=== PATIENT | female | born 1950 | race Caucasian/White ===

== ENCOUNTER → 2017-11-19 | Outpatient (CLI) | payer OTHER ==
[~2017-11-19] MED LIST: ASPIR 8181 MG PO; ATROVENT HFA14 GM INH; CARVEDILOL12.5 MG PO; CELEBREX100 MG/1 C PO; COUMADIN 3 MG TA3 M1 PO; COUMADIN 4 MG TA4 M1 PO; ENOXAPARIN100 MG/11 SUBQ; FLONASE 0.05%50 MCG NASAL; FLOVENT HFA 4444 MCG INH; LIPITOR 20 MG T20 M1 PO; LISINOPRIL10 MG PO; PROAIR HFA8.5 GM INH; SAVELLA100 MG PO; SINGULAIR 10 MG10 M1 PO; SYNTHROID150 MCG PO; TRAMADOL 50 MG50 MG PO; TRAZODONE HCL100 MG PO; ZYRTEC10 M2 PO
== END ==
LOC: MRI 12:22
DX: S46.811A Strain of other muscles, fascia and tendons at shoulder and upper arm level, right arm, initial encounter (principal); M19.011 Primary osteoarthritis, right shoulder; M62.511 Muscle wasting and atrophy, not elsewhere classified, right shoulder; M25.411 Effusion, right shoulder; M75.101 Unspecified rotator cuff tear or rupture of right shoulder, not specified as traumatic; X58.XXXA Exposure to other specified factors, initial encounter; Y93.89 Activity, other specified; Y92.89 Other specified places as the place of occurrence of the external cause; Y99.8 Other external cause status

== ENCOUNTER 2017-12-26 05:55 | Day surgery (SDC) | payer OTHER ==
[~2017-12-26] VITALS: Ht 165.1 cm; Wt 102.1 kg
--- NOTE | ~2017-12-26 | O ---
[facility] [place] [address] OPERATIVE REPORT Name: MINOR BANUELOS Room #: [place] [facility] Savi.#: [id number] Admission: 12/26/17 Attend Phys: Kannan North Discharge: 12/26/17 Date of : 54 Report #: [id number] THIS REPORT FOR: //name// CC: Kannan Dover DATE OF SERVICE: 12/26/2017 PREOPERATIVE DIAGNOSIS: Right shoulder recurrent massive rotator cuff tear. POSTOPERATIVE DIAGNOSES: Right shoulder recurrent massive rotator cuff tear, intraarticular loose bodies, glenohumeral joint chondromalacia, complex labral tear, retained rotator cuff implant and subacromial bursitis. PROCEDURE PERFORMED: Right shoulder arthroscopy, superior capsular reconstruction, rotator cuff repair of the subscapularis and infraspinatus, extensive debridement, loose body removal, removal of prior rotator cuff suture anchor construct. SURGEON: Kannan Thacker MD. PRINTED CIRCUIT BOARD ASSEMBLER: Maryellen Washburn PA-C. ANESTHESIA: General with preoperative interscalene block with Dr. Fischer. FLUIDS: 800 mL crystalloid. ESTIMATED BLOOD LOSS: Less than 5 mL. DESCRIPTION OF PROCEDURE: After proper identification of the patient and operative site in preoperative holding area, the operative site was signed by myself. Prophylactic antibiotics given. The patient elected to receive an interscalene block by Dr. Fischer after reviewing the risks, benefits, alternatives and potential complications. After a satisfactory block, the patient was brought back to the operative suite. After induction of satisfactory general anesthesia, the patient's right shoulder was carefully examined. It was stable throughout an arc of motion comparable to the preoperative assessment. She was carefully positioned in the left lateral decubitus position. Beanbag and axillary roll were utilized to support the torso. Right shoulder was then sterilely prepped and draped in usual manner and placed in 10 pounds of balanced arthroscopic suspension. The arm was abducted approximately 20 degrees. A posterior portal was established, joint was inflated with an arthroscopic pump set at 40 mmHg. An anterior superior portal was then created. Examination of the glenohumeral joint revealed several intra-articular chondral loose bodies, which were removed with motorized shaver. There was a complex labral tearing noted of the superior and anterior superior [address] [address] OPERATIVE REPORT Name: MINOR BANUELOS Room #: [place] [facility] M.R.#: [id number] Admission: 12/26/17 Attend Phys: Kannan North Discharge: 12/26/17 Date of : 54 Report #: [id number] quadrants, which was carefully debrided. Mild degenerative change was noted about the humeral head inferiorly as well as a small spot superiorly. This was partial thickness in nature and appeared to occupy less than 50% of the chondral thickness. There is evidence of a massive rotator cuff tear involving the upper border of the subscapularis, the entire supraspinatus and a portion of the infraspinatus. Intra-articular synovitis was noted, otherwise carefully debrided. The biceps was not visualized on its attachment to the labrum. At this point, an additional anterior inferior portal was created using an 8 mm cannula and a spinal needle for localization. Frayed upper border of the subscapularis was carefully debrided. The lesser tuberosity was debrided with a sharp ring curette and a FiberTape was placed through the upper border of the subscapularis and secured with a 4.75 mm SwiveLock anchor. The repair construct was stable to probing. This nicely reapproximated the upper border of the tear and the partial thickness chondral irregularity and any loose chondral flaps noted on the humeral head were carefully debrided. At this point, the arthroscope was introduced in the subacromial space. The patient's supraspinatus was irreparable. The upper border of the subscap had been repaired, so a complete tendon was noted. The infraspinatus could be pulled to the tuberosity, but there was not sufficient tissue for any more significant closure and therefore, the procedure carried on to the superior capsular reconstruction. The greater tuberosity and superior aspect of the glenoid were carefully prepared. Two anchors initially were inserted on the glenoid medially. These were 3 mm BioComposite SutureTak and then, a third additional anchor was placed laterally which was another 3 mm SutureTak laterally. Two 4.75 mm SwiveLock anchors loaded with FiberTape were positioned and then the measurements medially, laterally, anteriorly and posteriorly overall taken, 5 mm of additional graft length was planned for all dimensions other than the most lateral aspect of the graft was lengthened 10 mm. The LifeNet 3.5 mm decellularized dermis was prepared on the back table. Punches were utilized for placement of the sutures through the graft and in the middle of the graft medially, a FiberLink was applied, which was secured with a third Bio-SutureTak anchor. The sutures were carefully passed out a 12 mm PassPort cannula. The graft or the sutures were then fed through the graft and great care was taken with suture management to ensure that these did not angle. The Bio-SutureTak to the sutures were tied to each other and utilizing a anabela technique and the graft was carefully advanced into the joint and the sutures were then tensioned. The graft was carefully unfolded and positioned along the glenoid. It nicely laid down and then, the remaining 2 sutures were tied with nonsliding knots to secure this medially. This resulted in nice fixation. The FiberLink previously placed was secured with an additional 3.0 Bio-SutureTak for the third anchor of fixation medially. This was placed through portal. Prior to this insertion, previous suture and anchor construct was removed from her previous rotator cuff repair. Prior to the superior capsular reconstruction, this was noted in the 15th image. The posterior aspect of the infraspinatus was tenodesed to the posterior surface to the graft. A [id number] suture was applied in the mid aspect of the graft in more of a horizontal mattress suture [facility] [address] [place] [address] OPERATIVE REPORT Name: MINOR BANUELOS Room #: DEP [facility] M.Viki.#: [id number] Admission: 12/26/17 Attend Phys: Kannna North Discharge: 12/26/17 Date of : 54 Report #: [id number] utilizing the more medially based and posterior SwiveLock anchor of the suture bridge construct. The FiberTape were then cut, crossed and 2 additional SwiveLock anchors were placed more laterally base creating a double row construct completing the suture bridge portion of the procedure and this nicely laid down on the graft. There was no rotator interval tissue to close anteriorly. The graft was well positioned and well secured on both sides as well as the infraspinatus had been repaired as well. Subacromial space was thoroughly irrigated with normal saline. All instruments and cannulas were removed. Portals were closed with simple nylon stitches. The patient will be immobilized in a sling and abduction pillow for 8 weeks postoperatively. Qualified certified physician's assistant was utilized throughout the entire procedure to aid in patient limb positioning, visualization, suture management and closure and sling application. <ELECTRONICALLY SIGNED> By: Kannan Thacker MD 12/31/17 [id number] [id number] Kannan Thacker MD /nt
[2017-12-26 11:49] VITALS: BP 145/74
[2017-12-26 11:53] LABS: PROTIME 10.7 Seconds (9.3-11.4)
[2017-12-26 15:55] VITALS: BP 145/74
== END 2017-12-26 17:30 | disposition home or self-care (01) ==
LOC: OR 05:55 → TBA 05:55 → OR 14:04
PROVIDERS: Orthopaedic Surgery Sports Medicine
DX: M75.101 Unspecified rotator cuff tear or rupture of right shoulder, not specified as traumatic (principal); M94.211 Chondromalacia, right shoulder; M24.011 Loose body in right shoulder; S43.491A Other sprain of right shoulder joint, initial encounter; T84.098A Other mechanical complication of other internal joint prosthesis, initial encounter; M75.51 Bursitis of right shoulder; I10 Essential (primary) hypertension; E78.00 Pure hypercholesterolemia, unspecified; E03.9 Hypothyroidism, unspecified; M79.7 Fibromyalgia; M19.90 Unspecified osteoarthritis, unspecified site; J45.909 Unspecified asthma, uncomplicated; Z87.891 Personal history of nicotine dependence; Z98.890 Other specified postprocedural states; Z96.642 Presence of left artificial hip joint; Z96.651 Presence of right artificial knee joint; Z79.899 Other long term (current) drug therapy; X58.XXXA Exposure to other specified factors, initial encounter; Y93.89 Activity, other specified; Y92.89 Other specified places as the place of occurrence of the external cause; Y99.8 Other external cause status; Y83.8 Other surgical procedures as the cause of abnormal reaction of the patient, or of later complication, without mention of misadventure at the time of the procedure; Z95.2 Presence of prosthetic heart valve; Z88.8 Allergy status to other drugs, medicaments and biological substances; Z79.82 Long term (current) use of aspirin; Z79.01 Long term (current) use of anticoagulants
CPT/HCPCS: 50010; 50101; 50172; 50386; 50417; 50539; 50597; 50950; 51038; 51445; 51847; 53340; 53610; 54170; 55430; 56527; 62110; 62900; 65060; 70005

== ENCOUNTER → 2019-01-20 | Outpatient (CLI) | payer OTHER | LOC: MRI 11:42 | DX: M75.122 Complete rotator cuff tear or rupture of left shoulder, not specified as traumatic (principal); M25.412 Effusion, left shoulder ==

== ENCOUNTER 2019-03-05 05:37 | Day surgery (SDC) | payer OTHER ==
[~2019-03-05] VITALS: Ht 165.1 cm; Wt 102.5 kg
--- NOTE | ~2019-03-05 | O ---
[facility] [place] [address] OPERATIVE REPORT Name: MINOR BANUELOS Room #: [facility] Savi.#: [id number] Admission: 03/05/19 ������������������ Attend Phys: Kannan North Discharge: 03/05/19 ������������������ Date of : 54 Report #: [id number] THIS REPORT FOR: //name// CC: Kannan Dover DATE OF SERVICE: 03/05/2019 PREOPERATIVE DIAGNOSES: Left shoulder pain, rotator cuff tear, biceps tendinopathy, impingement syndrome, labral tear. POSTOPERATIVE DIAGNOSES: Left shoulder pain, large rotator cuff tear, biceps tendon tear and subluxation, complex labral tear, intra-articular synovitis, glenohumeral joint chondromalacia, subacromial bursitis with impingement syndrome. PROCEDURE PERFORMED: Left shoulder arthroscopy, rotator cuff repair, arthroscopic biceps tenodesis, subacromial decompression, extensive debridement. SURGEON: Kannan Thacker MD. TAILING MACHINE OPERATOR: Maryellen Washburn PA-C. ANESTHESIA: General with preoperative ultrasound-guided interscalene block. FLUIDS: 1000 mL crystalloid. ESTIMATED BLOOD LOSS: Approximately 5 mL. DESCRIPTION OF PROCEDURE: After proper identification of the patient and operative site in preoperative holding area, the operative site was signed by myself. Prophylactic antibiotics given. The patient elected to receive an ultrasound-guided block after reviewing the risks, benefits, alternatives and potential complications with Dr. Fischer. After a satisfactory block, the patient was brought back to the operative suite. After induction of satisfactory general anesthesia, the left shoulder was examined. It was stable throughout a full arc of motion comparable to the preoperative assessment. The patient was carefully positioned in the right lateral decubitus position. Feldman bag and extra roll were utilized to support the torso. Left shoulder was sterilely prepped and draped in usual manner and placed in 10 pounds of balanced arthroscopic suspension. Posterior portal was established, joint was insufflated with an arthroscopic pump set at 40 mmHg. Anterior superior portal was created using a spinal needle for localization. Examination of the glenohumeral joint revealed an extensive long head of the biceps tendon tear, subluxation on the upper border of the subscapularis was noted with an upper border tear of the subscap present, complex labral fraying and degeneration was [address] [address] OPERATIVE REPORT Name: MINOR BANUELOS Room #: [place]P [facility] Savi.#: [id number] Admission: 03/05/19 ������������������ Attend Phys: Kannan North Discharge: 03/05/19 ������������������ Date of : 54 Report #: [id number] noted of the anterior, superior and posterior superior quadrants. This was debrided with motorized shaver. Frayed portion of the biceps tendon was debrided. Tendon grasping stitch was applied and was released off the superior labrum. An additional anterior inferior portal was created for repair of the subscapularis. The abundant synovium was carefully debrided. Mild chondral thinning and fibrillation was appreciated on the humeral head as well as the glenoid. No exposed bone was noted. There was also a full thickness retracted tear of the supraspinatus extending into the anterior infraspinatus. At this point, the lesser tuberosity was prepared with sharp ring curette and motorized shaver. Frayed portion of the upper border of the subscapularis was carefully debrided. A FiberTape was passed in a simple manner and secured with a 4.75 mm SwiveLock anchor into the lesser tuberosity. Subscapularis was stable to probing following the repair. Arthroscope was introduced into subacromial space. Thickened subacromial bursa was encountered. This was resected for visualization purposes. Fraying in the undersurface of the coracoacromial arch was noted. The CA ligament was released, but not resected off the anterolateral acromion and prominence to the acromion was removed using a motorized bur. There was a complete tear crescent shaped in nature of the supraspinatus that extended back into the more anterior infraspinatus. Greater tuberosity was prepared with a combination of hand and motorized instrumentation. Tear was easily reducible. Tendon itself was thinned, but still competent, easily reduced to the footprint and through a separate portal off the lateral border of the acromion, a single triple-loaded 4.75 mm anchor with two #2 FiberWires and one FiberTape was inserted. Sutures were passed in a horizontal mattress fashion as well as the FiberTape were passed independently in a horizontal mattress fashion in the more central aspect of the repair. Sutures were then tied. Next, all 3 suture pairs were placed through a separate more laterally-based double row fixation using additional SwiveLock anchor after all slack was removed from the suture constructs and the lateral row was tensioned appropriately. The anchor had good purchase. Sutures were trimmed. At this point, the lateral border of the bicipital groove was opened. Biceps tendon was delivered. Whipstitch was placed. It was secured to the bicipital groove utilizing an Arthrex proximal biceps tenodesis button that was stable to probing following the procedure. The more proximal aspect of the tendon was trimmed. Subacromial space thoroughly irrigated with normal saline. Portals closed with simple nylon stitch. Sterile dressing was applied. The patient was awakened and transferred to the recovery room in stable condition. Qualified international first officer utilized throughout the entire procedure to aid in patient limb positioning, visualization with the arthroscope instrument and suture passage as well as closure and sling application. The patient will be immobilized in a sling and abduction pillow for 8 weeks postoperatively. No external rotation beyond neutral for the first 4 weeks. ��������������������������������������������� ���������������������������������������� By: ��������������������������������������������� [id number] Kannan Thacker MD /nt
[~2019-03-05 05:37] MED LIST changes: +CELECOXIB100 MG PO; +COUMADIN 5 MG TA5 M1 PO; +COUMADIN7.5 MG PO; +PROTONIX40 M1 PO
[2019-03-05 11:19] LABS: INR 1.1; PROTIME 11.7 Seconds (9.3-11.4)
[2019-03-05 12:51] VITALS: BP 122/68
[2019-03-05 14:51] VITALS: BP 122/68
== END 2019-03-05 15:35 | disposition home or self-care (01) ==
LOC: TBA 05:37 → OR 05:37
PROVIDERS: Orthopaedic Surgery Sports Medicine
DX: M75.102 Unspecified rotator cuff tear or rupture of left shoulder, not specified as traumatic (principal); S46.812A Strain of other muscles, fascia and tendons at shoulder and upper arm level, left arm, initial encounter; S46.112A Strain of muscle, fascia and tendon of long head of biceps, left arm, initial encounter; S43.492A Other sprain of left shoulder joint, initial encounter; M65.812 Other synovitis and tenosynovitis, left shoulder; M94.212 Chondromalacia, left shoulder; M75.52 Bursitis of left shoulder; M75.42 Impingement syndrome of left shoulder; I10 Essential (primary) hypertension; E78.5 Hyperlipidemia, unspecified; J45.909 Unspecified asthma, uncomplicated; E03.9 Hypothyroidism, unspecified; E78.00 Pure hypercholesterolemia, unspecified; M79.7 Fibromyalgia; K21.9 Gastro-esophageal reflux disease without esophagitis; M19.90 Unspecified osteoarthritis, unspecified site; Z96.642 Presence of left artificial hip joint; Z96.651 Presence of right artificial knee joint; Z98.890 Other specified postprocedural states; Z98.51 Tubal ligation status; Z79.899 Other long term (current) drug therapy; Z87.891 Personal history of nicotine dependence; Z88.8 Allergy status to other drugs, medicaments and biological substances; Z79.82 Long term (current) use of aspirin; X58.XXXA Exposure to other specified factors, initial encounter; Y93.89 Activity, other specified; Y92.89 Other specified places as the place of occurrence of the external cause; Y99.8 Other external cause status
CPT/HCPCS: 50010; 50101; 50172; 50386; 50417; 50935; 50950; 51038; 51445; 51847; 53610; 54170; 55430; 56527; 56530; 57103; 62110; 62900; 65060; 70005